=== PATIENT | female | born 1985 | race Caucasian/White ===

== ENCOUNTER 2019-02-02 12:50 | Emergency (ER) | payer BC | END 2019-02-02 14:25 | disposition home or self-care (01) | LOC: FTE 14:25 | DX: B34.9 Viral infection, unspecified (principal); I10 Essential (primary) hypertension; E11.9 Type 2 diabetes mellitus without complications | CPT/HCPCS: 99282 ==

== ENCOUNTER → 2019-06-12 | Outpatient (CLI) | payer BC ==
[~2019-06-12] MED LIST: NITROGLYCERIN AEROSOL (4.9 GM)
[2019-06-12] MEDS: SOD CHLORIDE 0.9% 100 ML (11:11)
[2019-06-12] MEDS: IOHEXOL 100 ML (11:11)
== END | disposition home or self-care (01) ==
LOC: C/S 09:07
DX: R94.39 Abnormal result of other cardiovascular function study (principal); R06.02 Shortness of breath
CPT/HCPCS: 75571; 75571-59; 75574